=== PATIENT | female | born 2000 | race Two or more races ===

== ENCOUNTER 2021-02-28 11:56 | Emergency (ER) | payer OTHER ==
[~2021-02-28] VITALS: Ht 152.4 cm; Wt 77.1 kg
[2021-02-28] MEDS ORDERED: ZITHROMAX TRI-500 MG PO (13:38)
[2021-02-28] MEDS ORDERED: KETO10TA2 PO (13:38)
== END 2021-02-28 13:46 | disposition home or self-care (01) ==
LOC: ER 11:56
DX: H92.01 Otalgia, right ear (principal)